=== PATIENT | female | born 1955 | race Caucasian/White ===

== ENCOUNTER 2022-09-03 16:59 | Emergency (ER) | payer OTHER ==
[~2022-09-03] VITALS: Ht 162.6 cm; Wt 68.0 kg
[2022-09-03 16:59] VITALS: BP 00/00
[2022-09-03 17:38] LABS: BASOPHILS ABSOLUTE AUTO 0.02 K/mm3 (0.00-0.23); BASOPHILS PERCENT AUTO 0 % (0-2); EOSINOPHILS ABSOLUTE AUTO 0.04 K/mm3 (0.00-0.68); EOSINOPHILS PERCENT AUTO 1 % (0-6); Hematocrit 35.6 % (33.0-53.0); Hemoglobin 11.1 g/dL (11.5-17.5); IMMATURE GRAN ABSOLUTE AUTO 0.11 K/mm3 (0.00-0.10); IMMATURE GRAN PERCENT AUTO 2 % (0-1); LYMPHOCYTES ABSOLUTE AUTO 3.99 K/mm3 (0.84-5.20); LYMPHOCYTES PERCENT AUTO 86 % (21-46); MONOCYTES ABSOLUTE AUTO 0.16 K/mm3 (0.16-1.47); MONOCYTES PERCENT AUTO 4 % (4-13); Mean Corpuscular HGB Conc 31.2 g/dL (31.5-36.5); Mean Corpuscular Volume 96 fL (80-100); Mean Platelet Volume 10.9 fL (9.1-12.4); NEUTROPHILS ABSOLUTE AUTO 0.31 K/mm3 (1.96-9.15); NEUTROPHILS PERCENT AUTO 7 % (41-73); NRBC ABSOLUTE 0.06 K/mm3 (0.00-0.02); NRBC Auto 1.3 /100 WBC (0.0-0.2); Platelet Count 51 K/mm3 (150-400); RDW Coefficient Variation 13.1 % (11.7-14.2); RDW Standard Deviation 46.2 fL (35.1-46.3); White Blood Cell Count 4.63 K/mm3 (4.00-11.30)
[2022-09-03 17:50] LABS: Chloride (POC) 107 mmol/L (98-108); Glucose (ISTAT POC) 89 mg/dL (70-99); Hemoglobin (POC) 12.6 g/dL (12.0-17.5); Potassium (POC) 5.2 mmol/L (3.5-5.5); Sodium (POC) 144 mmol/L (135-148); Total CO2 (POC) 27 mmol/L (21-32)
[2022-09-03 17:50] LABS: International Normalized Ratio 1.47; Prothrombin Time Results 15.1 Sec (9.7-11.5)
[2022-09-03 17:55] LABS: Ethanol (Alcohol), Blood, Med 173 mg/dL
[2022-09-03 18:15] LABS: Alanine Aminotransfer (ALT/SGP 411 U/L (12-78); Albumin, Blood 2.5 g/dL (3.4-5.0); Albumin/Globulin Ratio 0.9 (0.8-1.8); Alk Phos 93 U/L (50-136); Anion Gap 10 mmol/L (6-16); Aspartate Aminotrans (AST/SGOT 817 U/L (12-37); Bilirubin, Total 0.2 mg/dL (0.1-1.0); Blood Urea Nitrogen 10 mg/dL (8-24); Bun/Creatinine Ratio 12.5 (12.0-20.0); CO2, Blood 24 mmol/L (21-32); Calcium, Blood 8.3 mg/dL (8.5-10.1); Chloride, Blood 112 mmol/L (98-108); Globulin, Blood 2.9 g/dL (2.2-4.0); Glucose, Blood 175 mg/dL (70-99); Sodium, Blood 146 mmol/L (136-145); Total Protein, Blood 5.4 g/dL (6.4-8.2)
[2022-09-03 18:17] LABS: Potassium, Blood 6.2 mmol/L (3.5-5.5)
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
== END 2022-09-03 19:03 ==
LOC: EDSEX 16:59 → EDBD 16:59 → ER 16:59
PROVIDERS: Emergency Medicine
DX: I46.9 Cardiac arrest, cause unspecified (principal); S29.8XXA Other specified injuries of thorax, initial encounter; S39.81XA Other specified injuries of abdomen, initial encounter; S82.91XA Unspecified fracture of right lower leg, initial encounter for closed fracture; S81.812A Laceration without foreign body, left lower leg, initial encounter; S01.91XA Laceration without foreign body of unspecified part of head, initial encounter; V89.2XXA Person injured in unspecified motor-vehicle accident, traffic, initial encounter; F10.129 Alcohol abuse with intoxication, unspecified
CPT/HCPCS: 29505; 31500; 71045; 80047; 80053; 83690; 85014; 85025; 85610; 86850; 86900; 86901; 92950; 94002; 99285-25; G0480; J0171; J0282; J7060